=== PATIENT | female | born 1950 | race Caucasian/White ===

== ENCOUNTER → 2018-08-13 | Outpatient (CLI) | payer OTHER, BC | LOC: FIMAGING 08:37 | PROVIDERS: ATTEND Internal Medicine Rheumatology | DX: Z13.820 Encounter for screening for osteoporosis (principal); M81.0 Age-related osteoporosis without current pathological fracture ==

== ENCOUNTER → 2019-03-08 | Outpatient (CLI) | payer OTHER, BC | LOC: FIMAGING 11:11 ==

== ENCOUNTER 2019-03-29 07:56 | Day surgery (SDC) | payer OTHER, BC | END 2019-03-29 13:51 | disposition home or self-care (01) | LOC: FCATH 07:56 ==

== ENCOUNTER 2019-03-31 07:11 | Inpatient (IN) | payer OTHER, BC | END 2019-04-01 13:55 | disposition home or self-care (01) | LOC: F3N 07:11 ==